=== PATIENT | female | born 2000 | race Caucasian/White ===

== ENCOUNTER 2025-02-24 13:29 | Outpatient (REF) | payer OTHER, SELFPAY ==
[2025-02-24 16:14] LABS: MANUAL DIFF FLAG NO
[2025-02-24 16:26] LABS: Hematocrit 40.1 % (37.0-47.0); Hemoglobin 13.3 g/dl (12.0-16.0); Imm Gran Abs Auto 0.01 X10*3/uL (0.00-0.03); Imm Gran Pct Auto 0.1 % (0.0-0.4); Lymphocytes Absolute Auto 2.3 X10*3/uL (1.2-4.9); Mean Corpuscular HGB Conc 33.2 g/dl (31.0-35.0); Mean Corpuscular Hemoglobin 29.5 pg (27.0-33.0); Mean Corpuscular Volume 88.9 fL (80.0-98.0); NRBC Abs Auto 0.000 X10*3/uL (0.0-0.012); NRBC Pct Auto 0.0 /100WBC (0.0-0.2); Platelet Count 379 X10*3/uL (160-400); Red Blood Count 4.51 X10*6/uL (4.20-5.50); White Blood Count 7.3 X10*3/uL (4.8-10.8)
[2025-02-24 16:54] LABS: Alanine Aminotransferase 14 U/L (0-31); Albumin Level 4.4 g/dL (3.5-5.0); Alkaline Phosphatase 61 U/L (39-117); Anion Gap 13 (12-20); Aspartate Amino Transferase 21 U/L (5-31); Blood Urea Nitrogen 12 mg/dL (9-16); Calcium 9.7 mg/dL (8.4-10.2); Carbon Dioxide 25 mmol/L (22-29); Chloride 107 mmol/L (96-108); Estimated Glomerular Filt Rate > 60; Potassium 4.7 mmol/L (3.3-5.1); Sodium 140 mmol/L (135-145); Total Protein 7.7 g/dL (6.5-8.0)
[2025-02-24 17:11] LABS: Folate 4.0 ng/mL (> or = 4.0); Vitamin B12 310 pg/mL (200-900)
== END 2025-02-24 13:30 | disposition home or self-care (01) ==
LOC: HO.HMGCLDS 13:29
DX: Z00.00 Encounter for general adult medical examination without abnormal findings (principal); N13.30 Unspecified hydronephrosis; Z13.1 Encounter for screening for diabetes mellitus; Z13.0 Encounter for screening for diseases of the blood and blood-forming organs and certain disorders involving the immune mechanism; L70.9 Acne, unspecified; Z13.29 Encounter for screening for other suspected endocrine disorder; Z13.21 Encounter for screening for nutritional disorder
CPT/HCPCS: 36415; 80053; 82306; 82607; 82746; 84443; 85025; 96127

== ENCOUNTER 2025-02-24 13:29 | Outpatient (AMB) | payer OTHER, SELFPAY ==
--- NOTE | 2025-02-24 13:35 | MHC.PC.OV ---
Vital Signs 02/24/25 13:38 02/24/25 14:05 Height 5 ft 8 in Weight 163 lb 4 oz BMI 24.8 BP 126/80 Blood Pressure Location Lt brachial Position Sitting Pulse 120 H 98 Pulse Source Pulse Oximeter Auscultation Temp 97.3 F Temp Source Temporal Artery Scan Pulse Oximetry (%) 98 Oxygen Delivery Method Room Air Intake Visit Reasons: establish care Accompanied by: Mother Allergies No Known Allergies Allergy (Verified 02/24/25 13:42) Medication List - Last Reconciled 02/24/25 by Marcela Banks PA-C bupropion HCl SR 200 mg PO QAM buspirone 10 mg PO TID clascoterone 1% (Winlevi) 1 appl topical BID norgestimate-ethinyl estradiol 0.18/0.215/0.25 mg-0.025 mg (Szw-Dn-Dbagqzdha) 1 tab PO DAILY spironolactone 50 mg PO DAILY tretinoin 0.025% 1 appl topical BEDTIME vilazodone 40 mg PO DAILY Tobacco use date assessed: 02/24/25 Dental Screening Dental Screen Date: 02/24/25 Did you have a dental visit in the last 12 months?: No Did you have a dental problem in the last 6 months where you did not have access to dental care?: No Was dental information given to patient?: No HPI establish care HPI Details 24-year-old female coming to the office with the 1st time. Presenting to establish care. Her last provider was a rod tape operator at [facility], which was several years ago. The patient has a history of anxiety, depression, and ADHD. She is managed by a virtual psychiatrist through [facility], whom she sees monthly. She feels her medications, which include Wellbutrin, Buspar, and Vilazodone, are managing her symptoms well. For acne, she is followed by a internal medicine physician assistant at [facility] annually. Her treatment regimen includes spironolactone, creams and control. pap smear: never sexually active vaccines: UTD [facility] Medical History Hydronephrosis Family History Mother No problems noted. Father No problems noted. Social History Housing: House Patient Tobacco Use Status: Never used Tobacco Tobacco use type: Cigarette e-Cigarette/Vaping Use: Never Used Second Hand Smoke Exposure: No service: No Current occupational status: unemployed Cognitive needs: No Hearing needs: No Vision needs: No Female Reproductive History Menstrual Duration of menses: 6-7 days control method: pills Total pregnancies: 0 History of abnormal pap smear: No Questionnaire PHQ-9 Over the last 2 weeks, how often have you been bothered by any of the following problems? 1. Little interest or pleasure in doing things: not at all 2. Feeling down, depressed, or hopeless: several days 3. Trouble falling or staying asleep, or sleeping too much: not at all 4. Feeling tired or having little energy: not at all 5. Poor appetite or overeating: not at all 6. Feeling bad about yourself - or that you are a failure or have let yourself or your family down: not at all 7. Trouble concentrating on things, such as reading the newspaper or watching television: not at all 8. Moving or speaking so slowly that other people could have noticed. Or the opposite - being so fidgety or restless that you have been moving around a lot more than usual: not at all 9. Thoughts that you would be better off or of hurting yourself in some way: not at all Total score: 1 Depression Screening Interpretation: Negative Depression Screening Done: Yes Source: Developed by Drs. Tate Christiansen, Trixie Mueller, Joe Goncalves and colleagues, with an educational aranza from [employer]. Thrive Questionnaire Date Thrive assessed: 02/17/25 I am a: Patient What is your living situation today?: I have a steady place to live Within the past 12 months, did the food you bought not last and you didn't have the money to get more?: Never true Within the past 12 months, did you worry whether your food would run out before you got money to buy more?: Sometimes True Do you have trouble paying for medicines?: No Do you have trouble getting transportation to medical appointments?: No Do you have trouble paying your heating and electricity bill?: No Do you have trouble taking care of your child, family member or friend?: No Do you have trouble with day-to-day activities such as bathing, preparing meals, shopping, managing finances, etc.?: No Are you currently unemployed and looking for a job?: No Are you interested in more education?: No Please select the resources that you would like help with: None Currently or been in a relationship where the following occur: Controlled Emotionally THRIVE Score: 2 AUDIT C Alcohol Use Questionnaire (AUDIT-C) 1. How often do you have a drink containing alcohol?: Never 3. How often do you have six or more drinks on one occasion?: Never Total Score: 0 Score Reviewed/Action Taken: Yes SHIELA-7 AMB Questionnaire SHIELA-7 Date SHIELA - 7 assessed: 02/24/25 Feeling nervous, anxious, or on edge: 1 = Several days Not being able to stop or control worryin = Several days Worrying too much about different things: 1 = Several days Trouble relaxin = Several days Being so restless that it is hard to sit still: 0 = Not at all Becoming easily annoyed or irritable: 0 = Not at all Feeling afraid as if something awful might happen: 0 = Not at all Total SHIELA-7 score (0-4 normal; 5-9 mild; 10-14 moderate; 15-21 severe): 4 Source: Developed by Drs. Tate Christiansen, Trixie Mueller, Joe Goncalves and colleagues, with an educational aranza from [employer]. SHIELA-7 Assessment Billing SHIELA-7 Assessment Tool: SHIELA-7 Assessment 91364 Review of Systems Const Denies body aches, Denies chills, Denies fatigue, Denies fever(s), Denies headache(s) and Denies poor appetite Eyes Reports no additional complaints ENT Denies dysphagia, Denies dizziness, Denies headache(s) and Denies odynophagia Card Denies chest pain, Denies syncope, Denies edema, Denies lightheadedness and Denies dyspnea Resp Denies cough and Denies dyspnea GI Denies abdominal pain, Denies constipation, Denies dysphagia, Denies diarrhea, Denies nausea, Denies odynophagia and Denies vomiting Reports no additional complaints Musc Reports no additional complaints and Denies abnormal gait Skin/Breast Reports system reviewed and no additional complaints, except as documented Neuro Denies abnormal gait, Denies dizziness, Denies syncope and Denies headache(s) Psych Reports no additional complaints Endo Denies fatigue Physical exam (Primary Care) Vital Signs: Last Vital Signs Temp 97.3 F 02/24/25 13:38 Pulse 98 02/24/25 14:05 BP 126/80 02/24/25 13:38 Pulse Ox 98 02/24/25 13:38 Oxygen Delivery Method Room Air 02/24/25 13:38 BMI result Body Mass Index 24.8 Tobacco/Smoking Status: Tobacco use Status Tobacco use date assessed 02/24/25 02/24/25 13:41 Patient Tobacco Use Status Never used Tobacco 02/24/25 13:47 Tobacco use type Cigarette 02/24/25 13:47 e-Cigarette/Vaping Use Never Used 02/24/25 13:47 PHQ-9: PHQ-9 Score PHQ-9: Total score 1 02/24/25 13:47 Depression Screening Interpretation: Negative Thrive Assessment: Date of Thrive Assessment Date Thrive assessed 02/17/25 02/24/25 13:41 Currently or been in a relationship where the following occur: Controlled Emotionally Const General: cooperative, healthy appearing, comfortable and no acute distress Orientation/consciousness: patient oriented x3 HENMT Head: Yes normocephalic Ears: hearing grossly normal bilaterally General nose exam: Normal external nose present Face and sinus: Yes normal facial exam and Yes sinuses nontender Mouth: Normal oral and palatal mucosa present and tongue normal Throat: Yes posterior oropharynx normal Eyes General: appearance normal, both eyes and all related structures Conjunctivae: conjunctivae normal Pupils: Equal, round and reactive pupils present EOM: EOMs intact bilaterally and No Nystagmus present Neck Neck: Yes full ROM and Yes no lymphadenopathy Chest Chest palpation & inspection: normal inspection of the chest Resp Effort & Inspection: normal respiratory effort Auscultation: clear to auscultation bilaterally, no crackles, no rales, no rhonchi and no wheezes Cardio Rate: regular rate Rhythm: regular rhythm Peripheral pulses: radial pulses present and dorsalis pedis present GI Inspection: Yes normal to inspection and No Abdominal wall edema Palpation (GI): Soft to palpation, not firm and nontender Auscultation: normal bowel sounds Rectal Exam - Female: deferred General: Yes no CVA tenderness Back/Spine/Pelvis Back: no CVA tenderness Skin General skin exam: no rashes or lesions noted Neuro General: patient oriented x3 Cranial nerves: Yes Equal, round and reactive pupils present, Yes Midline tongue present, Yes Ability to bilaterally elevate shoulders present and No Nystagmus present Gait exam (Neuro): Normal gait present Extrem General: Yes normal to inspection, Yes full ROM and No edema Psych Speech and movement: Normal speech and movement present Affect: normal affect Attitude: cooperative Insight: Good insight present (Psych) Judgement: Good judgement present (Psych) Coding Level of Care Code New Pt Prev Care 18-39yr([id number] Diagnoses Annual physical exam Z00.00 Acne L70.9 Depression F32.A Anxiety F41.9 ADHD F90.9 Additional Codes SHIELA-7 Assessment Billing - SHIELA-7 Assessment Tool: SHIELA-7 Assessment 03310 ([id number]) Assessment & Plan Assessment & Plan (1) Annual physical exam: Code(s): Z00.00 - Encounter for general adult medical examination without abnormal findings Category: Medical Plan: Patient is up to date on all recommended routine screenings and vaccinations for her age. She has never been sexually active and is declining pap smears and STI testing. Healthy diet and regular exercise is encouraged. Plan for blood work and plan to follow up yearly or sooner as needed or pending blood work evaluation. (2) Acne: Comment: [facility] Code(s): L70.9 - Acne, unspecified Category: Medical Plan: Continue on Spironalactone and current creams as prescribed by her internal medicine physician assistant. (3) Depression: Code(s): F32.A - Depression, unspecified Category: Medical Plan: The patient reports her anxiety and depression are well-controlled with her current medication regimen, which includes Wellbutrin, Buspar, and Vilazodone. She will continue to follow up with her virtual psychiatrist monthly. Resources for an in-person psychiatrist and a therapist were offered, but the patient declined at this time. (4) Anxiety: Comment: [facility] Eliel Champion monthly Code(s): F41.9 - Anxiety disorder, unspecified Category: Medical Plan: See above (5) ADHD: Code(s): F90.9 - Attention-deficit hyperactivity disorder, unspecified type Category: Medical Plan: See above Plan This note was constructed using voice recognition software. While every effort has been made to ensure accuracy and pellet machine operator, still areas may have been included sometimes these areas may affect the content or meeting of the given symptoms. Total time spent caring for the patient today was 30 minutes. This includes time spent before the visit reviewing the chart, time spent during the visit, and time spent after the visit and documentation. Patient was informed and verbally consented to the use of an ambient scribe for clinic note documentation during this visit. Orders: Orders TSH reflex Free T4 Today L70.9 - Acne, unspecified, Z13.29 - Encounter for screening for other suspected endocrine disorder Comprehensive Met. Panel Today N13.30 - Unspecified hydronephrosis, Z13.1 - Encounter for screening for diabetes mellitus Vitamin B12 and Folate Today L70.9 - Acne, unspecified, Z13.21 - Encounter for screening for nutritional disorder Vitamin D 25-OH Total Today L70.9 - Acne, unspecified, Z13.21 - Encounter for screening for nutritional disorder Complete Blood Count Auto Diff Today Z13.0 - Encounter for screening for diseases of the blood and blood-forming organs and certain disorders involving the immune mechanism
[2025-02-24 13:38] VITALS: BP 126/80; PULSE 120; TEMP 36.3; O2SAT 98; BMI 24.8
[2025-02-24 14:05] VITALS: PULSE 98
== END 2025-02-24 14:14 | disposition home or self-care (01) ==
LOC: HO.HMCH 13:30
DX: Z00.00 Encounter for general adult medical examination without abnormal findings (principal); L70.9 Acne, unspecified; F32.A Depression, unspecified; F41.9 Anxiety disorder, unspecified; F90.9 Attention-deficit hyperactivity disorder, unspecified type